=== PATIENT | female | born 1965 | race African-American/Black ===

== ENCOUNTER 2018-03-12 17:43 | Inpatient (IN) ==
[2018-03-12 18:39] LABS: Basophils % 0.4 % (0.0-0.8); Hematocrit 45.8 VOL% (35.7-47.0); Immature Granulocytes % 0.4 %; Immature Granulocytes Absolute 0.03 #; Lymphocytes # 1.8 10*3/uL (1.4-4.0); Lymphocytes % 24.8 % (21.3-54.2); Mean Corpuscular HGB Conc 32.8 GM/DL (32-36); Mean Corpuscular Hemoglobin 26 PG (27-34); Mean Corpuscular Volume 80.5 FL (87-102); Mean Platelet Volume 12.5 FL (9.6-12.0); Monocytes # 0.4 10*3/uL (0.11-0.8); Monocytes % 5.7 % (1.7-12.7); Neutrophils # 4.9 10*3/uL (1.4-7.4); Neutrophils % 68.7 % (38.7-73.9); Platelet Count 264 T/CUMM (130-400); Red Blood Count 5.69 MC/CUMM (3.8-5.5); Red Cell Distribution Width 13.5 % (9.3-17.3); White Blood Count 7.2 T/CUMM (4-12)
[2018-03-12 18:59] LABS: Calcium 9.6 MG/DL (8.5-10.1); Osmolality,Calculated 297.8 MOS/KG (273-304); Potassium 3.8 MMOL/L (3.5-5.1)
[2018-03-12] MEDS ORDERED: SODIUM CHLORIDE 0.9% 1,000 ML IV STA (19:45)
[2018-03-12 20:04] LABS: Albumin 4.3 G/DL (3.4-5.0); Bilirubin,Total 0.7 MG/DL (0.2-1.0); Calcium 9.8 MG/DL (8.5-10.1); Osmolality,Calculated 296.8 MOS/KG (273-304); Potassium 3.9 MMOL/L (3.5-5.1); Total Protein 9.4 G/DL (6.4-8.3)
[2018-03-12 20:06] LABS: Apearance,Urine CLEAR (Clear); Bacteria,Urine Occasional /HPF (Few); Bilirubin,Urine Negative (Negative); Blood, Urine Negative (Negative); Glucose,Urine (UA) >=500 mg/dL (Negative); Ketones,Urine 5 mg/dL (Negative); Nitrite,Urine Negative (Negative); Protein,Urine Negative; Squamous Epithelial Cell,Urine Occasional /HPF (0-10); Urine Color Straw (Yellow); Urine Specific Gravity 1.024 (1.001-1.035); Urine Urobilinogen < 2.0 EU/DL (0.2-1.0); WBC,Urine 2 /HPF (0-6)
[2018-03-12] MEDS ORDERED: SODIUM CHLOR 0.9% KCL 20 MEQ 20 MEQ/1,000 ML BAG IV ONE (20:11)
[2018-03-12] MEDS: INSULIN REGULAR DRIP 100 ML IV SCH (20:40)
[2018-03-12] MEDS: SODIUM CHLOR 0.9% KCL 20 MEQ 20 MEQ/1,000 ML BAG IV SCH (20:48)
[2018-03-12] MEDS ORDERED: DEXTROSE 50% 25 GM/50 ML VIAL IV PRN ×2 (21:00)
[2018-03-12] MEDS ORDERED: MAGNESIUM SULF RIDER 4 GM in PREMIX 1 EACH IV PRN (21:00)
[2018-03-12] MEDS ORDERED: SODIUM BICARB INJ 100 MEQ in STERILE WATER INJ 400 ML IV PRN (21:00)
[2018-03-12] MEDS ORDERED: SODIUM PHOSPHATE INJ 30 MMOL in SODIUM CHLORIDE 0.9% 250 ML IV PRN (21:00)
[2018-03-12] MEDS ORDERED: LABETALOL 100 MG/20 ML VIAL IV PRN (21:12)
[2018-03-12] MEDS ORDERED: amLODIPine 5 MG TABLET PO ONE (21:30)
[2018-03-12] MEDS ORDERED: FLUCONAZOLE 150 MG TABLET PO ONE (22:30)
[2018-03-12] MEDS: ENOXAPARIN 40 MG/0.4 ML SYRINGE SUBCUT SCH (23:01)
[2018-03-13 02:39] LABS: Basophils % 0.5 % (0.0-0.8); Hematocrit 41.1 VOL% (35.7-47.0); Hemoglobin 13.7 GM/DL (12.0-16.0); Immature Granulocytes % 0.4 %; Immature Granulocytes Absolute 0.03 #; Lymphocytes % 23.7 % (21.3-54.2); Mean Corpuscular HGB Conc 33.3 GM/DL (32-36); Mean Corpuscular Hemoglobin 27 PG (27-34); Mean Corpuscular Volume 79.5 FL (87-102); Mean Platelet Volume 12.1 FL (9.6-12.0); Monocytes # 0.7 10*3/uL (0.11-0.8); Monocytes % 8.2 % (1.7-12.7); Neutrophils # 5.6 10*3/uL (1.4-7.4); Neutrophils % 67.2 % (38.7-73.9); Platelet Count 245 T/CUMM (130-400); Red Blood Count 5.17 MC/CUMM (3.8-5.5); Red Cell Distribution Width 13.6 % (9.3-17.3); White Blood Count 8.3 T/CUMM (4-12)
[2018-03-13 02:54] LABS: Calcium 8.8 MG/DL (8.5-10.1); Osmolality,Calculated 280.4 MOS/KG (273-304); Potassium 2.7 MMOL/L (3.5-5.1)
[2018-03-13] MEDS: INSULIN REGULAR DRIP 100 ML IV SCH (02:59)
[2018-03-13] MEDS: MAGNESIUM SULF RIDER 2 GM in PREMIX 1 EACH IV PRN (03:28)
[2018-03-13] MEDS ORDERED: POTASSIUM CHLORIDE INJ 50 MEQ in SODIUM CHLORIDE 0.9% 475 ML IV SCH (04:00)
[2018-03-13] MEDS: SODIUM CHLOR 0.9% KCL 20 MEQ 20 MEQ/1,000 ML BAG IV SCH (05:05)
[2018-03-13] MEDS ORDERED: LEVOTHYROXINE 50 MCG TABLET PO SCH ×2 (06:00→21:00)
[2018-03-13] MEDS ORDERED: GLUCAGON 1 MG VIAL IM PRN (08:13)
[2018-03-13 08:37] LABS: Calcium 8.7 MG/DL (8.5-10.1); Osmolality,Calculated 279.4 MOS/KG (273-304); Potassium 3.2 MMOL/L (3.5-5.1)
[2018-03-13] MEDS: POTASSIUM CHLORIDE 20 MEQ TABLET PO SCH ×4 (08:48→19:42)
[2018-03-13] MEDS: POTASSIUM CHLORIDE INJ 10 MEQ in SODIUM CHLORIDE 0.9% 1,000 ML IV SCH ×2 (10:12→21:09)
[2018-03-13] MEDS: INSULIN LISPRO 100 UNIT/ML SUBCUT SCH ×3 (12:04→20:42)
[2018-03-13] MEDS ORDERED: SODIUM CHLORIDE 0.45% 1,000 ML IV SCH (14:06)
[2018-03-13] MEDS: glipiZIDE 10 MG TABLET PO SCH (16:00)
[2018-03-13] MEDS ORDERED: glipiZIDE 10 MG TABLET PO SCH (16:30)
[2018-03-13] MEDS: ENOXAPARIN 40 MG/0.4 ML SYRINGE SUBCUT SCH (20:41)
[2018-03-13] MEDS ORDERED: amLODIPine 5 MG TABLET PO SCH ×2 (21:00)
[2018-03-13] MEDS ORDERED: LISINOPRIL/HCTZ 20-25 MG TABLET PO SCH (21:00)
[2018-03-13] MEDS ORDERED: metFORMIN 500 MG TABLET PO SCH (21:00)
[2018-03-14 06:11] LABS: Calcium 8.6 MG/DL (8.5-10.1); Osmolality,Calculated 283.8 MOS/KG (273-304); Potassium 3.4 MMOL/L (3.5-5.1)
[2018-03-14] MEDS: MAGNESIUM SULF RIDER 2 GM in PREMIX 1 EACH IV PRN (06:58)
[2018-03-14] MEDS: glipiZIDE 10 MG TABLET PO SCH (08:47)
[2018-03-14] MEDS: POTASSIUM CHLORIDE INJ 10 MEQ in SODIUM CHLORIDE 0.9% 1,000 ML IV SCH ×2 (08:55→18:05)
[2018-03-14] MEDS ORDERED: INSULIN GLARGINE 100 UNIT/ML SUBCUT SCH (09:00)
[2018-03-14] MEDS ORDERED: POTASSIUM CHLORIDE 20 MEQ TABLET PO ONE (09:00)
[2018-03-14] MEDS: INSULIN LISPRO 100 UNIT/ML SUBCUT SCH ×3 (09:30→17:23)
[2018-03-14] MEDS: POTASSIUM CHLORIDE RIDER 10 MEQ in PREMIX 1 EACH IV PRN ×3 (10:40→14:10)
[2018-03-14 15:49] VITALS: BP 154/86
== END 2018-03-14 18:40 | disposition home or self-care (01) | DRG 638 ==
LOC: N.ED 17:43 → SUATTDRO 21:00 → N.EDINP 21:00 → N.ICU 21:59 → N.2E 03-13 13:40
PROVIDERS: ADMIT Internal Medicine; ATTEND Internal Medicine